=== PATIENT | female | born 1950 | race Caucasian/White ===

== ENCOUNTER 2023-10-17 14:01 | Outpatient (CLI) | payer MEDICARE, SELFPAY ==
--- NOTE | 2023-10-17 15:13 | ECG_ITS ---
Test Date: 2023-10-17 15:31:31 Measurements Intervals [place] Rate: 61 P: 53 WI: 169 QRS: 17 QRSD: 99 T: 42 QT: 410 QTc: 414 Interpretive Statements SINUS RHYTHM No previous ECG available for comparison Electronically Signed On 10-18-2023 15:29:09 CDT by Zac Rivera M.D.
[2023-10-17 16:01] LABS: Basophils Percent Auto 0.5 % (0.2-1.2); Eosinophils Absolute Auto 0.1 K/mm3 (0-0.3); Eosinophils Percent Auto 2.2 % (0-4.4); Hematocrit 41.8 % (37.0-47.0); Hemoglobin 13.7 g/dL (12.0-15.0); Immature Granulocyte Absolute 0.01 K/mm3 (0.00-0.031); Immature Granulocyte Percent A 0.2 % (0-0.5); Lymphocytes Absolute Auto 2.05 K/mm3 (0.9-3.2); Lymphocytes Percent Auto 32.9 % (18.3-44.2); Mean Corpuscular HGB Conc 32.8 g/dl (32-36); Mean Corpuscular Volume 100.7 fl (80-100); Mean Platelet Volume 9.2 fl (7.4-10.4); Monocytes Absolute Auto 0.4 K/mm3 (0.1-0.6); Monocytes Percent Auto 6.7 % (2.6-8.5); Neutrophils Absolute Auto 3.6 K/mm3 (1.3-6.7); Neutrophils Percent Auto 57.5 % (45.5-73.1); Platelet Count Result 260 k/mm3 (150-375); Red Blood Count 4.15 M/mm3 (4.2-5.4); Red Cell Distribution Width 13.8 % (11.5-14.5); White Blood Count 6.2 K/mm3 (4.5-10.0)
[2023-10-17 16:14] LABS: Alanine Aminotransferase 16 U/L (6-35); Albumin Level 4.3 g/dL (3.5-5.1); Alkaline Phosphatase 66 U/L (38-126); Anion Gap 11 mmol/L (4-12); Aspartate Amino Transferase 26 U/L (14-36); Bilirubin,Total 0.3 mg/dL (0.2-1.3); Blood Urea Nitrogen 16 mg/dL (7-17); Calcium 8.9 mg/dL (8.4-10.2); Carbon Dioxide 24 mmol/L (22-30); Chloride 104 mmol/L (98-107); Estimated Glomerular Filt Rate > 60; Glucose 142 mg/dL (65-110); Potassium 3.9 mmol/L (3.4-5.0); Sodium 139 mmol/L (137-145)
[2023-10-17 16:36] LABS: Prothrombin Time 13.7 Seconds (11.1-14.7)
[2023-10-17 16:37] LABS: Partial Thromboplastin Time 27.7 Seconds (22.3-36.8)
== END 2023-10-17 14:02 | disposition home or self-care (01) ==
PROVIDERS: Visit Provider Urology
DX: Z01.818 Encounter for other preprocedural examination (principal); E78.00 Pure hypercholesterolemia, unspecified
CPT/HCPCS: 36415; 80053; 85025; 85610; 85730; 93005

== ENCOUNTER 2023-10-31 01:19 | Day surgery (SDC) | payer MEDICARE, SELFPAY ==
[2023-10-17 14:33] VITALS: BMI 27.7
--- NOTE | 2023-10-17 14:57 | PC.NURSE ---
Report to the Outpatient Waiting Room, entrance under the green pavilion located off [facility], at time __6AM on date __10/31/23 . Planned Procedure Time: __7:30 AM .? Time changes happen often and if your time is changed the preop area will call you the afternoon before. - You and your visitor will be asked to self-screen and do not enter if you have any COVID symptoms. Please call surgeon if you need to reschedule. - A mask is optional within the hospital at this time. Patients may have clear liquids (water, carbonated beverages, clear teas, apple juice) until 3 hours prior to surgery( 4:30 AM) with a maximum of 20 ounces. - No food from midnight until time of surgery and no smoking - Infants may have breast milk until 4 hours before surgery, infant formula 6 hours prior to surgery. - Children will be allowed to drink immediately following surgery.? If applicable, please bring a bottle or sippy cup to assist with drinking. Juice, water, soda, and popsicles are readily available.? For infants on formula, please bring formula the day of surgery.? Pacifiers are allowed. Take only the following medications with a SIP of water on the morning of surgery: _LEVOTHYROXINE,OXYCODONE IF NEEDED FOR PAIN DO NOT STOP ANY OF YOUR OTHER PRESCRIPTION MEDICATIONS PRIOR TO SURGERY EXCEPT THE FOLLOWING Medications to discontinue per physician __HOLD ALL VITAMINS AND SUPPLEMENTS 3 DAYS PRE OP .LAST DOSE 10/27/23 Please no make-up, nail turkish, hairspray, perfume, deodorant, or body powder the day of surgery.? No jewelry (including any body piercings) or valuables the day of surgery, leave them at home.? Please take a shower or bath the night before, or the morning of, surgery with an antibacterial soap.? Wear comfortable, loose fitting clothing.? Children are encouraged to wear pajamas. - Jewelry must be removed prior to entering the operating room.? Rings and piercings that are not removed may be cut off. - The hospital will not accept responsibility for valuables.? - Please leave all valuables, including medications, at home the day of surgery. If you are going home after surgery, a licensed cdl truck driver must drive you home.? - NO public transportation without another adult if you receive anesthesia. - We recommend that an adult stay with you for 24 hours following discharge. - We also recommend that you do not drive, make important decision, drink alcoholic beverages, or take any drugs that were not prescribed by your health care provider for at least 24 hours after your discharge time. Follow any additional instructions given to you from your surgeon. VERBAL AND WRITTEN instructions given to __PATIENT AND SPOUSE DON and asked if any additional questions and then verbalized understanding. Patient advised to call surgeon office or pre surgery nurse liaison [phone] if any additional questions.
[2023-10-17 15:13] VITALS: BP 117/72; PULSE 64; RESP 18; O2SAT 99
--- NOTE | 2023-10-27 07:03 | PM.IMHP ---
H&P: HPI History of Present Illness Date/Time: 10/27/23 07:03 Chief Complaint: uterine prolapse Narrative: 73-year-old female admitted for robotic supracervical hysterectomy and bilateral salpingo-oophorectomy secondary to uterine prolapse. She will also undergo a sacral colpopexy and pelvic repair. Risks and benefits reviewed in great detail. She had all questions answered. And received the ACOG handout entitled hysterectomy as well as the Karolyn handout. She asked to proceed PMFSH Social History Social History Smoking status: Never smoker Living arrangements: with family Spiritual care concerns: No Meds Home Medications and Allergies Home Medications Medication Instructions Recorded Confirmed Type baclofen 10 mg tablet 10 mg PO PRN PRN Muscle Spasm 10/17/23 10/17/23 History levothyroxine 50 mcg tablet 50 mcg PO DAILY 10/17/23 10/17/23 History magnesium 500 mg tablet 300 mg PO BID 10/17/23 10/17/23 History oxycodone-acetaminophen 7.5 mg-325 1 tablet PO PRN PRN Pain 10/17/23 10/17/23 History mg tablet rosuvastatin 5 mg tablet 5 mg PO HS 10/17/23 10/17/23 History turmeric 400 mg capsule 400 mg PO DAILY 10/17/23 10/17/23 History Allergies Allergy/AdvReac Type Severity Reaction Status Date / Time codeine AdvReac Itching Verified 10/17/23 14:34 Exam Const: General: cooperative, healthy appearing and comfortable Nutritional Appearance: average body habitus Orientation/consciousness: oriented to person, oriented to place and oriented to time Resp: Effort & Inspection: normal respiratory effort Cardio: Rate: regular rate Rhythm: regular rhythm Heart sounds: S1 normal heart sound present and S2 normal heart sound present GI: Inspection: normal to inspection : External Female Exam: normal external appearance Speculum Exam - Vagina: normal appearance of the vagina Speculum Exam - Cervix: normal appearance of the cervix ( prolapse present) Bimanual exam- vagina & uterus: non-tender Bimanual Exam- Adnexa, other: normal adnexae Assessment and Plan Assessment and plan (1) Uterine prolapse: Code(s): N81.4 - Uterovaginal prolapse, unspecified Status: Acute Assessment and Plan: robotic supracervical hysterectomy and bilateral salpingo-oophorectomy. Dr. Brown will do sacral colpopexy go from there
--- NOTE | 2023-10-28 08:02 | PM.IMHP ---
H&P: HPI History of Present Illness Date/Time: 10/28/23 08:02 Chief Complaint: Prolapse, stress incontinence Narrative: 73-year-old female with stress incontinence and uterine prolapse. She desires surgical intervention Review of Systems Review of Systems: All systems reviewed & are unremarkable except as noted in HPI and below PMFSH Social History Social History Smoking status: Never smoker Living arrangements: with family Spiritual care concerns: No Meds Home Medications and Allergies Home Medications Medication Instructions Recorded Confirmed Type baclofen 10 mg tablet 10 mg PO PRN PRN Muscle Spasm 10/17/23 10/17/23 History levothyroxine 50 mcg tablet 50 mcg PO DAILY 10/17/23 10/17/23 History magnesium 500 mg tablet 300 mg PO BID 10/17/23 10/17/23 History oxycodone-acetaminophen 7.5 mg-325 1 tablet PO PRN PRN Pain 10/17/23 10/17/23 History mg tablet rosuvastatin 5 mg tablet 5 mg PO HS 10/17/23 10/17/23 History turmeric 400 mg capsule 400 mg PO DAILY 10/17/23 10/17/23 History Allergies Allergy/AdvReac Type Severity Reaction Status Date / Time codeine AdvReac Itching Verified 10/17/23 14:34 Exam Narrative: Anterior wall +3. [place] at -1 Positive urethral mobility Assessment and Plan Assessment and plan (1) Uterine prolapse: Code(s): N81.4 - Uterovaginal prolapse, unspecified Status: Acute (2) Stress incontinence: Code(s): N39.3 - Stress incontinence (female) (male) Status: Acute Plan Plan for robotic sacral colpopexy and urethral sling. Understands risks of bleeding, infection, demonstrating organs, damage to urinary tract, vaginal mesh extrusion, urinary tract mesh erosion, obstructive voiding requiring a procedure, hip and leg pain, dyspareunia, recurrent or persistent prolapse or stress incontinence. She agrees to proceed
[2023-10-31] VITALS (13 sets, daily range): BP systolic 114–159; BP diastolic 64–115; PULSE 54–82; RESP 12–20; TEMP 36.3–37.4; O2SAT 95–100; BMI 27.7
--- NOTE | 2023-10-31 06:56 | WPDHPUPDATE1 ---
History and Physical Update Update Date/Time: 10/31/23 06:56 History and Physical has been reviewed, including an updated exam of the patient. There are NO changes in the patient's condition. Risks, benefits, and alternatives have been discussed and questions answered. Patient agrees to proceed with procedure.
[2023-10-31] MEDS: KETOROLAC 15 MG/ML VIAL (*BKC) IV PUSH ×2 (07:00→17:45)
--- NOTE | 2023-10-31 07:01 | P.PNAN_ITS ---
Anes - Initial Pre Proc Eval Procedure: Operation Date: 10/31/23 07:30 Proposed Procedures p Robotic Sacrocolpopexy, Urethral Sling, - Robi Brown MD s Robotic Assisted Supracervical Hysterectomy with Bilateral Salpingo- oophorectomy - Justin Kirby MD Date/Time: 10/31/23 07:01 Surgeon: Robi Brown MD Pre Op Diagnosis: prolapse,cystocele,stress incont Patient Data Age: 73 Gender: F Height: 1.6 m Weight: 71 kg Last Vital Signs Pulse 64 10/17/23 15:13 Resp 18 10/17/23 15:13 BP 117/72 10/17/23 15:13 Pulse Ox 99 10/17/23 15:13 O2 Del Method Room Air 10/17/23 15:13 Allergies Allergy/AdvReac Type Severity Reaction Status Date / Time codeine AdvReac Itching Verified 10/31/23 06:12 Home Medications Medication Instructions Recorded Confirmed Type baclofen 10 mg tablet 10 mg PO PRN PRN Muscle Spasm 10/17/23 10/17/23 History levothyroxine 50 mcg tablet 50 mcg PO DAILY 10/17/23 10/17/23 History magnesium 500 mg tablet 300 mg PO BID 10/17/23 10/17/23 History oxycodone-acetaminophen 7.5 mg-325 1 tablet PO PRN PRN Pain 10/17/23 10/17/23 History mg tablet rosuvastatin 5 mg tablet 5 mg PO HS 10/17/23 10/17/23 History turmeric 400 mg capsule 400 mg PO DAILY 10/17/23 10/17/23 History Patient hx anesthesia problems: none Family hx anesthesia problems: none Results Review: All pre-operative results and documents have been reviewed as part of the pre- operative evaluation. [facility] Past Medical History Medical History (Updated 10/31/23 @ 07:05 by Peter Jack DO) Chronic, continuous use of opioids 15 years oxycodone Hyperlipidemia Hypothyroidism Osteoarthritis Surgical History Surgical History (Updated 10/31/23 @ 07:05 by Peter Jack DO) History of cholecystectomy Social History Social History Smoking status: Never smoker Living arrangements: with family Spiritual care concerns: No Anes - Eval Final PreProcedure Day of Procedure 10/31/23 07:01 Patient weight: overweight Heart: regular rate and rhythm Lungs: clear to auscultation Airway: Mallampati scale class II Neurological: alert and oriented Last oral intake: >/= 8 hours ASA classification: III Emergent: no Anesthetic plan: proceed Anesthesia type and monitoring: general ETT and standard monitoring Results Review: All pre-operative results and documents have been reviewed as part of the pre- operative evaluation. Informed Consent: The patient's anesthetic plan and its attendant risks and benefits were discussed with the patient/family/POA. Questions were solicited and answers provided to the satisfaction of the patient/family/POA.
[2023-10-31] MEDS: LACTATED RINGERS 1,000 ML 30 ML IV CONT ×2 (07:13→10:00)
--- NOTE | 2023-10-31 07:16 | WPDHPUPDATE1 ---
History and Physical Update Update Date/Time: 10/31/23 07:16 History and Physical has been reviewed, including an updated exam of the patient. There are NO changes in the patient's condition. Risks, benefits, and alternatives have been discussed and questions answered. Patient agrees to proceed with procedure.
[2023-10-31] MEDS: ACETAMINOPHEN 500 MG TABLET 1000 MG PO (07:21)
[2023-10-31] MEDS: metroNIDAZOLE 500 MG/ISO 100ML 500 MG/100 ML BAG 100 MG IVPB ×2 (07:26→17:09)
[2023-10-31] MEDS: ceFAZolin 2 GM/D5W 50 ML 2 GM/50 ML BAG IVPB (07:26)
[2023-10-31] MEDS: BUPIVACAINE/EPINEPHRINE 0.5% 10 ML VIAL 30 ML INFILTRATE (07:56)
--- NOTE | 2023-10-31 08:23 | P.OP_ITS ---
Procedure Note - Detailed Date of Procedure 10/31/23 Pre-op Diagnosis prolapse,cystocele,stress incont Post-op Diagnosis Same Procedure Performed robotic a supracervical hysterectomy and bilateral salpingo-oophorectomy Surgeon Justin Kirby MD Anesthesia General Indications 73-year-old female with uterine prolapse stress incontinence Findings prolapsed uterus with small fibroids. Tubes status post tubal ligation. Ovaries appeared normal Description of Procedure the patient was prepped and draped in the normal sterile fashion placed in the dorsal lithotomy position. Under excellent general endotracheal anesthesia weighted speculum placed in posterior fornix vagina. Anterior lip of the cervix grasped with a single-tooth tenaculum and the Oneal's cannula inserted to the cervix. This was attached to the single-tooth to be used for later uterine manipulation. Sixteen [place] catheter was placed in the bladder drained of clear urine. The weighted speculum was removed and the gloves were changed. Dr. Castillo proceeded to dock the robot and make the incisions please see his operative report for full details. Attention was then turned to the console. The left round ligament was grasped, burned, cut. Anteriorly a bladder flap was formed by sharply dissecting the peritoneum and reflecting it caudally away from the cervix and uterus to the opposite round ligament which was clamped, burned, cut. Next the left infundibulopelvic structure was skeletonized clamping burning cutting bringing this to level of previously cut ligament to the left ovary and tube. In similar fashion on the right the infundibulopelvic structure was skeletonized clamping burning cutting and bringing this to level of previously cut round to remove the right ovary and tube. The cardinal broad ligaments on the left were skeletonized clamping burning cutting and bringing this down to the level of the uterine vessels. These were individually clamped, burned, cut. In similar fashion on the right the cardinal broad ligaments were skeletonized clamping burning cutting and hugging the cervix and uterus until the uterine vessels could be seen on the right. These were individually clamped, burned, cut. A supracervical incision made and the uterus tubes and ovaries placed in the Endo-Catch. Dr. Brown proceeded from there blood loss was estimated at5cc at this point. All sponge, needle, instrument counts were correct up to this point Estimated Blood Loss 5 Drains No Packing No Pathology Yes Complications No immediate complications Condition Stable Disposition No change
--- NOTE | 2023-10-31 08:27 | P.DS_ITS ---
DS: Admitting Diagnosis Discharge Date 11/01/2023 Admitting Diagnosis uterine prolapse and stress urinary incontinence DS: Discharge Diagnosis Discharge Diagnosis (1) Stress incontinence: Code(s): N39.3 - Stress incontinence (female) (male) Status: Acute (2) Uterine prolapse: Code(s): N81.4 - Uterovaginal prolapse, unspecified Status: Acute DS: Summary Hospital Course Reason for hospitalization: patient was admitted for supracervical hysterectomy and bilateral salpingo- oophorectomy via robot as well as sacral colpopexy and sling Hospital Course: patient's hospital course unremarkable. She remained afebrile. She was up, voiding without difficulty, eating regular diet, ambulating, generally without complaints. Time Spent with Patient Time attestation: Total time spent providing and/or coordinating discharge services: Exam Const: General: cooperative, healthy appearing and comfortable Nutritional Appearance: average body habitus Orientation/consciousness: oriented to person, oriented to place and oriented to time HENMT: Head: normal to inspection Resp: Effort & Inspection: normal respiratory effort Cardio: Rate: regular rate Rhythm: regular rhythm Heart sounds: S1 normal heart sound present and S2 normal heart sound present GI: Inspection: normal to inspection and incision ( Wounds are clean dry and intact) DS: Data Data Completed and Pending Labs on day of discharge: Labs from last 24 hours 10/31/23 06:19 Blood Type A Positive Antibody Screen Negative Discharge Plan Discharge Patient Disposition: Home, Self-Care Discharge Instructions: No lifting >20lb, exercise for 6 weeks No tub bath or pool for 2 weeks Stand Alone Forms: General Discharge Instructions Follow-up/Referrals: Robi Brown MD [Physician] - (6 weeks) Jsutin Jose MD [Physician] - Discharge Medications: Continued oxycodone-acetaminophen 7.5-325 mg tablet 1 tablet PO PRN PRN (Reason: Pain) baclofen 10 mg tablet 10 mg PO PRN PRN (Reason: Muscle Spasm) levothyroxine 50 mcg tablet 50 mcg PO DAILY rosuvastatin 5 mg tablet 5 mg PO HS turmeric 400 mg Capsule 400 mg PO DAILY magnesium 500 mg Tablet 300 mg PO BID
--- NOTE | 2023-10-31 09:57 | W.PM.PROC2 ---
Procedure Note - Detailed Date of Procedure 10/31/23 Pre-op Diagnosis Uterine prolapse,cystocele,stress incontinence Post-op Diagnosis Same Procedure Performed Robotic assisted laparoscopic sacral colpopexy Urethral sling Cystoscopy Surgeon Robi Brown MD Anesthesia General Indications This is a woman with uterine prolapse as well as stress incontinence. She desires surgical correction. She is here for the above. She understands risks of bleeding, infection, diskitis, damage to surrounding organs, bowel injury, bowel obstruction, mesh related complications including exposure and extrusion, postoperative voiding dysfunction including incontinence and retention, need for ancillary procedures, dyspareunia, recurrence of prolapse, and other perioperative intraoperative postoperative complications. She agrees to proceed. Findings See below Description of Procedure She was correctly identified. Informed consent obtained. She from the operating room. She was given general anesthesia. She was given appropriate perioperative antibiotics. She was placed a low lithotomy position. Pressure points were padded. A time-out performed. I marked out the skin 3 fingerbreadths cephalad to the umbilicus. I anesthetized the skin. I incised the skin. I dissected down to the fascia. I grasped the fascia with Mark clamps. I entered the fascia sharply in a Donald type technique. I placed sutures for later fascial closure. I placed a midline trocar. I examined the abdomen. There is no sign of any injury. There was some adhesions of the omentum in the right upper quadrant. I placed 2 additional trocars in the upper quadrant. I was then able to take down these adhesions. This was all done bluntly. I then placed 2 additional trocars in the right upper quadrant. All this was done under direct vision. She was placed in steep Trendelenburg. The robot was docked. Her electrical equipment assembler completed their portion of the procedure. Please see that operative report for details. I then sat at the console. The Sizer in the vagina created plane on the anterior and posterior vaginal wall. I took great care not to injure the vagina, bladder, or rectum. I introduced the mesh into the abdomen. I sewed the anterior leaflet of mesh on the anterior vaginal wall. I sewed the posterior leaflet of mesh on the posterior vaginal wall. This was done with several sutures of 2 0 [place]. I reflected the colon laterally. I opened the posterior peritoneum over the sacral promontory. I carried this into the cul-de-sac. I freed up the edges for later retroperitonealization. I located the anterior longitudinal ligament the sacrum. I cleaned off all fatty tissues. I then tensioned my mesh appropriately. I did a vaginal exam the bedside. I assured prolapse reduction without undue tension. I then sewed the proximal leaflet of mesh onto the anterior longitudinal ligament of the sacrum with several sutures of 2 0 [place]. I then used a 2 0 Monocryl to completely and meticulously retroperitonealized all mesh. I allowed the colon to go back to its normal anatomic location. There is no sign of any impingement. The specimen was then removed. All ports removed. Fascia was tied down. Multiple additional sutures were placed fully close the fascia. Skin was closed with Monocryl and surgical glue. She was repositioned and prepped for urethral sling. I marked out the inner thigh incisions. I anesthetized the skin and made the incisions. I then anesthetized the anterior vaginal wall at the mid urethra. I made a 1 cm incision. I dissected out laterally taking great care not to injure the refilled vaginal wall. I passed the helical trocars. I did this 1st on the left and then on the right. This was done from the thigh incision towards the vaginal incision. Sling was connected to the trocars and brought out the thigh incision. I tensioned the sling appropriately. I cut and the p
[2023-10-31] MEDS: fentaNYL CITRATE INJ (*CRX) 100 MCG/2 ML VIAL 25 MCG IV PUSH ×8 (10:14→10:40)
[2023-10-31] MEDS: HYDROmorphone HCL INJ (*CRX) 1 MG/ML SYR IV PUSH ×2 (10:45→11:04)
[2023-10-31] MEDS: ONDANSETRON INJ 4 MG/2 ML VIAL IV PUSH (12:15)
[2023-10-31] MEDS: KCL 20 MEQ/D5/0.45% SOD CHL 1,000 ML 100 ML IV CONT (12:16)
[2023-10-31] MEDS: oxyCODONE/ACETAMINOPHEN (*CRX) 5-325 MG TABLET 1 TABLET PO ×2 (13:46→21:25)
--- NOTE | 2023-10-31 14:11 | PC.NURSE ---
Pt received from PACU via bed. VS taken and pt is stable. Incisions look well approximated, no drainage. Will continue to monitor.
[2023-10-31] MEDS: ceFAZolin 1 GM/NS 50 ML 1 GM/50 ML BAG IVPB ×2 (15:41→23:22)
[2023-10-31] MEDS: ROSUVASTATIN 5 MG TABLET PO (21:25)
[2023-11-01] MEDS: oxyCODONE/ACETAMINOPHEN (*CRX) 5-325 MG TABLET 1 TABLET PO (05:42)
[2023-11-01 05:52] VITALS: BP 134/71; PULSE 64; RESP 22; TEMP 36.9; O2SAT 100
--- NOTE | 2023-11-01 07:19 | PM.GYNPNOP ---
JUNIOR NET DEVELOPER - A/P Postoperative Procedures: Procedures Operation Date: 10/31/23 07:30 Actual Procedure Side Surgeon p Robotic Sacrocolpopexy, Urethral Sling, Robi Brown MD s Robotic Assisted Supracervical Hysterectomy with Bilateral Salpingo-oophorectomy Bilateral Justin Kirby MD Postoperative day: 1 Postoperative status: doing well Postoperative plan: routine post-op care, see orders, ambulate, advance diet, voiding trials and discharge Time Spent With Patient Time: Total time spent is greater than 50% in coordination of care (as documented) at patient's floor/unit and/or counseling patient: Time with patient: less than 15 minutes JUNIOR NET DEVELOPER- PN:Subj Post-Op Subjective Date/time seen: 11/01/23 07:19 Subjective: patient reports feeling better, patient has no complaints, patient desires discharge, pain is well controlled and patient is tolerating oral intake Exam Const: General: cooperative, healthy appearing and comfortable Nutritional Appearance: average body habitus Orientation/consciousness: oriented to person, oriented to place and oriented to time HENMT: Head: normal to inspection Resp: Effort & Inspection: normal respiratory effort Cardio: Rate: regular rate Rhythm: regular rhythm Heart sounds: S1 normal heart sound present and S2 normal heart sound present GI: Inspection: normal to inspection and incision (cdi) JUNIOR NET DEVELOPER - PN: Obj Data Vital Signs Vital Signs: Vital Signs - 24 hr 10/31/23 10:00 10/31/23 10:05 10/31/23 10:15 Temperature 97.7 F Pulse Rate 82 54 L Respiratory Rate 16 20 Blood Pressure 159/115 H 148/73 H 136/71 Pulse Oximetry 100 100 Oxygen Delivery Simple Face Mask Simple Face Mask Oxygen Flow Rate 6 6 10/31/23 10:30 10/31/23 10:45 10/31/23 11:00 Temperature Pulse Rate 59 L 59 L 59 L Respiratory Rate 18 16 14 Blood Pressure 138/70 131/77 132/71 Pulse Oximetry 100 100 99 Oxygen Delivery Simple Face Mask Room Air Room Air Oxygen Flow Rate 6 10/31/23 11:15 10/31/23 11:30 10/31/23 11:50 Temperature 98.6 F 97.6 F Pulse Rate 59 L 59 L 65 Respiratory Rate 12 12 16 Blood Pressure 114/65 116/76 121/75 Pulse Oximetry 97 95 97 Oxygen Delivery Room Air Room Air Oxygen Flow Rate 10/31/23 15:45 10/31/23 20:40 10/31/23 23:30 Temperature 98.5 F 98.9 F 99.3 F Pulse Rate 70 68 70 Respiratory Rate 16 16 16 Blood Pressure 142/64 H 130/68 135/75 Pulse Oximetry 96 95 96 Oxygen Delivery Oxygen Flow Rate 11/01/23 05:52 Temperature 98.5 F Pulse Rate 64 Respiratory Rate 22 H Blood Pressure 134/71 Pulse Oximetry 100 Oxygen Delivery Oxygen Flow Rate Intake/Output Intake/Output: Intake & Output 10/29/23 10/30/23 10/31/23 11/01/23 23:59 23:59 23:59 23:59 Intake Total 1540 1350 Output Total 195 1400 Balance 1345 -50 Meds/Results Medications: Active Medications Generic Name Dose Route Start Last Admin Trade Name Freq PRN Reason Stop Dose Admin Acetaminophen 650 mg 10/31/23 11:40 Acetaminophen 325 Mg Tablet PO Q4H PRN Mild Pain (1-3) or Fever Baclofen 10 mg 10/31/23 12:05 Baclofen 10 Mg Tablet PO TID PRN Muscle Spasm Cephalexin HCl 500 mg 11/01/23 09:00 Cephalexin 500 Mg Capsule PO QID NICOLE Diphenhydramine HCl 25 mg 10/31/23 11:40 Diphenhydramine Hcl Inj 50 Mg/Ml Vial IV PUSH Q6H PRN Itching Docusate Sodium 100 mg 10/31/23 11:40 10/31/23 14:13 Docusate Sodium 100 Mg Capsule PO Not Given DAILY NICOLE Enoxaparin Sodium 30 mg 11/01/23 09:00 Enoxaparin 30 Mg/0.3 Ml Syringe SUB-Q DAILY NICOLE Potassium Chloride/Dextrose/Sod Cl 1,000 mls @ 100 mls/hr 10/31/23 11:40 11/01/23 07:06 Kcl 20 Meq/D5/0.45% Sod Chl IV CONT Not Given .Q10H NICOLE Metronidazole 500 mg in 100 mls @ 100 mls/hr 10/31/23 16:00 11/01/23 00:00 Flagyl 500 Mg/Iso Soln 100 Ml IVPB 100 mls/hr Q8H NICOLE Administration Ketorolac Tromethamine 15 mg 10/31/23 11:40
[2023-11-01] MEDS: LEVOTHYROXINE SODIUM 50 MCG TABLET PO (07:29)
[2023-11-01] MEDS: metroNIDAZOLE 500 MG/ISO 100ML 500 MG/100 ML BAG 100 MG IVPB ×2 (07:29)
--- NOTE | 2023-11-01 07:33 | WPDANESPN ---
Anes - Prog Note Post-Op Date/Time: 11/01/23 07:33 Cardiovascular status: normal Respiratory status: normal Airway patency: baseline Mental status: baseline Post-Op hydration status: normal Vital Signs: Last Vital Signs Temp 98.5 F 11/01/23 05:52 Pulse 64 11/01/23 05:52 Resp 22 H 11/01/23 05:52 BP 134/71 11/01/23 05:52 Pulse Ox 100 11/01/23 05:52 O2 Del Method Room Air 10/31/23 11:30 O2 Flow Rate 6 10/31/23 10:30 Pain Score (VAS): 8 I/O: Intake & Output 10/31/23 10/31/23 11/01/23 15:59 23:59 07:59 Intake Total 7447 047 6379 Output Total 195 1400 Balance 1045 150 50 10/31/23 06:19 Blood Type A Positive Antibody Screen Negative Post-procedural complaints: none Patient Feedback: Patient satisfied with anesthetic care. Other Findings: pt rates pain 8 but states her scheduled percocet works well to treat her pain
[2023-11-01 08:10] VITALS: BP 120/64; PULSE 64; RESP 16; TEMP 36.4; O2SAT 98
[2023-11-01] MEDS: DOCUSATE SODIUM 100 MG CAPSULE PO (10:14)
[2023-11-01] MEDS: CEPHALEXIN 500 MG CAPSULE PO (10:14)
[2023-11-01] MEDS: ENOXAPARIN 30 MG/0.3 ML SYRINGE SUB-Q (10:14)
== END 2023-11-01 11:00 | disposition home or self-care (01) ==
LOC: ANHSURGERY 08:29 → ANHOB2 11:58
PROVIDERS: Obstetrics & Gynecology; Visit Provider Urology
PROC: (CPT 57425; principal; 2023-10-31 07:30)
PROC: 0UT94ZZ Resection of Uterus, Percutaneous Endoscopic Approach (ICD-10-PCS; CPT 57425; 2023-10-31 07:30)
DX: N81.4 Uterovaginal prolapse, unspecified (principal); N39.3 Stress incontinence (female) (male); D25.1 Intramural leiomyoma of uterus; N83.8 Other noninflammatory disorders of ovary, fallopian tube and broad ligament; E03.9 Hypothyroidism, unspecified; E78.5 Hyperlipidemia, unspecified; M19.90 Unspecified osteoarthritis, unspecified site; Z79.891 Long term (current) use of opiate analgesic
CPT/HCPCS: 57288; 57425; 58542; S2900 ×2; 36415; 86850; 86900; 86901; 88307; 99199; A9270; C1771; C1781; J0690; J1100; J1170; J1650; J1836; J1885; J2405; J2704; J3010; J3480; J7030; J7120